=== PATIENT | female | born 1970 | race Caucasian/White ===

== ENCOUNTER 2016-10-29 09:15 | Emergency (ER) | payer OTHER ==
[2016-10-29 11:12] LABS: HEMOGLOBIN 12.7 gm/dl (12.3-15.3); RED BLOOD COUNT 4.13 M/UL (4.00-5.10); WHITE BLOOD COUNT 4.8 K/UL (4.5-11.0)
[2016-10-29 11:39] LABS: BUN/CREATININE RATIO 18 (0-10)
== END 2016-10-29 13:33 | disposition home or self-care (01) ==
LOC: ER1 09:15
PROVIDERS: Physician Assistant
DX: R42 Dizziness and giddiness (principal); H53.8 Other visual disturbances
CPT/HCPCS: 36415; 70450; 71010; 80053; 82550; 82553; 83874; 84484; 85025; 93005; 99284